=== PATIENT | female | born 1980 | race Caucasian/White ===

== ENCOUNTER 2017-07-26 22:07 | Emergency (ER) | payer OTHER ==
[~2017-07-26] VITALS: Ht 165.1 cm; Wt 81.2 kg
[~2017-07-26 22:07] MED LIST: ACET325 PO; ALBU90OI INH; AMIT50; AMIT50 PO; AZIT250 PO; BENZ100A PO; BUSP10; BUSP15 PO; CEPH500 PO; CIPR500 PO; CODACE30 PO; DIPH50 PO; DOXY100 PO; DULO30; DULO60; DULO60 PO; ERYT250 PO; ERYT333ERA PO; ESTROGEN; FIORICET; HYDACE5; HYDACE5 PO; IBUP200 PO; IBUP600 PO; IBUP800 PO; ISODICACE PO; MEDR150I; MEDR150I IM; METO100ER; METO25ER PO; METO50; METO50 PO; METO50ER; METPRE4DP PO; METR500 PO; MULVITMINE PO; NAPR500; NAPR500 PO; NITR100CA PO; OXYACE5T PO; OXYACE7.5T PO; PHENA200 PO; PRED20 PO; PROACE100 PO; PROCODE120 PO; PROM25 PO; PROP20 PO; RANI150 PO; RIFA300 PO; RXHYDACE PO; RXPHEN200 PO; RXPROACE PO; TAMS.4ER PO; TOPI100; TOPI100 PO
[2017-07-26] MEDS ORDERED: AMIT50 PO (22:44)
[2017-07-26] MEDS ORDERED: NAPR500 PO (22:44)
[2017-07-26] MEDS ORDERED: CYCL10 PO (22:44)
[2017-07-26] MEDS ORDERED: DULO60 (22:44)
[2017-07-27 00:19] LABS: BASOPHILS ABSOLUTE AUTO 0.05 K/mm3 (0.00-0.23); BASOPHILS PERCENT AUTO 1 % (0-2); EOSINOPHILS ABSOLUTE AUTO 0.12 K/mm3 (0.00-0.68); EOSINOPHILS PERCENT AUTO 1 % (0-6); Hematocrit 37.8 % (33.0-51.0); Hemoglobin 12.7 g/dL (11.5-16.0); IMMATURE GRAN ABSOLUTE AUTO 0.03 K/mm3 (0.00-0.10); IMMATURE GRAN PERCENT AUTO 0 % (0-1); LYMPHOCYTES ABSOLUTE AUTO 3.78 K/mm3 (0.84-5.20); LYMPHOCYTES PERCENT AUTO 38 % (21-46); MONOCYTES ABSOLUTE AUTO 0.56 K/mm3 (0.16-1.47); MONOCYTES PERCENT AUTO 6 % (4-13); Mean Corpuscular HGB 29.7 pg (26.0-34.0); Mean Corpuscular HGB Conc 33.6 g/dL (31.5-36.5); Mean Corpuscular Volume 88 fL (80-100); Mean Platelet Volume 9.7 fL (9.1-12.4); NEUTROPHILS PERCENT AUTO 55 % (41-73); Platelet Count 305 K/mm3 (150-400); RDW Coefficient Variation 13.1 % (11.7-14.2); RDW Standard Deviation 42.4 fL (35.1-46.3); Red Blood Cell Count 4.28 M/mm3 (3.80-5.20); White Blood Cell Count 10.04 K/mm3 (4.00-11.30)
[2017-07-27 00:34] LABS: International Normalized Ratio 1.03; Prothrombin Time Results 10.7 Sec (9.7-11.5)
[2017-07-27 00:38] LABS: Anion Gap 5 mmol/L (6-16); Blood Urea Nitrogen 12 mg/dL (8-24); CO2, Blood 27 mmol/L (21-32); Calcium, Blood 8.3 mg/dL (8.5-10.1); Chloride, Blood 107 mmol/L (98-108); Creatinine, Blood 0.86 mg/dL (0.40-1.00); Glomerular Filtration Rate >60 (60-); Glucose, Blood 88 mg/dL (70-99); Potassium, Blood 3.5 mmol/L (3.5-5.5); Sodium, Blood 139 mmol/L (136-145)
[2017-07-28] MEDS ORDERED: METTREX2.5 PO (09:58)
[2017-07-28] MEDS ORDERED: IBUP800 PO (11:06)
[2017-07-28] MEDS ORDERED: Ultram50 MG PO (11:06)
[2018-04-27] MEDS ORDERED: Zantac150 MG PO (12:22)
[2018-04-27] MEDS ORDERED: Prednisone20 MG PO (12:49)
== END 2017-07-27 01:34 | disposition home or self-care (01) ==
LOC: ER 22:07
PROVIDERS: Emergency Medicine
DX: M79.661 Pain in right lower leg (principal); Z88.0 Allergy status to penicillin; Z88.1 Allergy status to other antibiotic agents; Z88.5 Allergy status to narcotic agent; Z88.8 Allergy status to other drugs, medicaments and biological substances; Z91.040 Latex allergy status; Z79.899 Other long term (current) drug therapy; J45.909 Unspecified asthma, uncomplicated; F17.200 Nicotine dependence, unspecified, uncomplicated; Z98.51 Tubal ligation status
CPT/HCPCS: 36415; 80048; 85025; 85610; 85730; 93971; 99284

== ENCOUNTER 2017-07-28 08:49 | Emergency (ER) | payer OTHER ==
[~2017-07-28] VITALS: Ht 170.2 cm; Wt 77.1 kg
[~2017-07-28 08:49] MED LIST changes: +CYCL10 PO
[2017-07-28] MEDS ORDERED: METTREX2.5 PO (09:58)
[2017-07-28] MEDS ORDERED: Ultram50 MG PO (11:06)
[2017-07-28] MEDS ORDERED: IBUP800 PO (11:06)
[2018-04-27] MEDS ORDERED: Zantac150 MG PO (12:22)
[2018-04-27] MEDS ORDERED: Prednisone20 MG PO (12:49)
== END 2017-07-28 11:42 | disposition home or self-care (01) ==
LOC: ER 08:49
DX: S86.911A Strain of unspecified muscle(s) and tendon(s) at lower leg level, right leg, initial encounter (principal); J45.909 Unspecified asthma, uncomplicated; M54.9 Dorsalgia, unspecified; Z88.0 Allergy status to penicillin; Z88.2 Allergy status to sulfonamides; Z88.6 Allergy status to analgesic agent; Z88.8 Allergy status to other drugs, medicaments and biological substances; Z91.040 Latex allergy status; Z79.899 Other long term (current) drug therapy; F17.200 Nicotine dependence, unspecified, uncomplicated; Z98.51 Tubal ligation status; Z98.890 Other specified postprocedural states; X50.9XXA Other and unspecified overexertion or strenuous movements or postures, initial encounter
CPT/HCPCS: 93971; 99283

== ENCOUNTER → 2017-11-09 | Outpatient (CLI) | payer OTHER ==
[~2017-11-09] MED LIST changes: +METTREX2.5 PO; +Ultram50 MG PO
== END | disposition home or self-care (01) ==
LOC: LAB SHORT 10:38 → LAB EV 10:38
DX: N39.0 Urinary tract infection, site not specified (principal)
CPT/HCPCS: 87077; 87086; 87186

== ENCOUNTER → 2017-12-10 | Outpatient (CLI) | payer OTHER ==
[2017-12-10 10:15] LABS: BASOPHILS ABSOLUTE AUTO 0.05 K/mm3 (0.00-0.23); BASOPHILS PERCENT AUTO 1 % (0-2); EOSINOPHILS ABSOLUTE AUTO 0.08 K/mm3 (0.00-0.68); EOSINOPHILS PERCENT AUTO 1 % (0-6); Hematocrit 41.7 % (33.0-51.0); Hemoglobin 14.5 g/dL (11.5-16.0); IMMATURE GRAN ABSOLUTE AUTO 0.02 K/mm3 (0.00-0.10); IMMATURE GRAN PERCENT AUTO 0 % (0-1); LYMPHOCYTES PERCENT AUTO 36 % (21-46); MONOCYTES ABSOLUTE AUTO 0.46 K/mm3 (0.16-1.47); MONOCYTES PERCENT AUTO 6 % (4-13); Mean Corpuscular HGB 29.8 pg (26.0-34.0); Mean Corpuscular HGB Conc 34.8 g/dL (31.5-36.5); Mean Corpuscular Volume 86 fL (80-100); Mean Platelet Volume 9.7 fL (9.1-12.4); NEUTROPHILS ABSOLUTE AUTO 4.68 K/mm3 (1.96-9.15); NEUTROPHILS PERCENT AUTO 57 % (41-73); Platelet Count 330 K/mm3 (150-400); RDW Coefficient Variation 13.4 % (11.7-14.2); Red Blood Cell Count 4.86 M/mm3 (3.80-5.20); White Blood Cell Count 8.29 K/mm3 (4.00-11.30)
[2017-12-10 10:35] LABS: Alanine Aminotransfer (ALT/SGP 27 U/L (12-78); Albumin, Blood 4.1 g/dL (3.4-5.0); Alk Phos 146 U/L (40-126); Anion Gap 12 mmol/L (6-16); Aspartate Aminotrans (AST/SGOT 15 U/L (12-37); Bilirubin, Total 0.3 mg/dL (0.1-1.0); Blood Urea Nitrogen 8 mg/dL (8-24); CO2, Blood 23 mmol/L (21-32); Calcium, Blood 8.9 mg/dL (8.5-10.1); Chloride, Blood 104 mmol/L (98-108); Globulin, Blood 4.1 g/dL (2.2-4.0); Glomerular Filtration Rate >60 (60-); Glucose, Blood 88 mg/dL (70-99); Potassium, Blood 3.8 mmol/L (3.5-5.5); Sodium, Blood 139 mmol/L (136-145); Total Protein, Blood 8.2 g/dL (6.4-8.2)
[2017-12-10 10:56] LABS: Source, Urine Voided
[2017-12-10 11:08] LABS: Bacteria Not Seen /hpf; Red Blood Cells, Urine Not Seen /hpf (0-2); Squamous Epithelial Cells Few /hpf (Few); White Blood Cells, Urine Not Seen /hpf (0-5)
[2017-12-11 12:26] LABS: Candida species (DNA Probe) Negative (NEGATIVE); G. vaginalis (DNA Probe) Negative (NEGATIVE); T. vaginalis (DNA Probe) Negative (NEGATIVE)
== END | disposition home or self-care (01) ==
LOC: LAB SHORT 10:12 → LAB EV 10:12
PROVIDERS: Physician Assistant
DX: I63.9 Cerebral infarction, unspecified (principal); R30.0 Dysuria
CPT/HCPCS: 80053; 81015; 85025; 87480; 87510; 87660

== ENCOUNTER 2018-09-20 20:46 | Emergency (ER) | payer OTHER ==
[~2018-09-20] VITALS: Ht 165.1 cm; Wt 92.1 kg
[~2018-09-20 20:46] MED LIST changes: +Prednisone20 MG PO; +Zantac150 MG PO
== END 2018-09-20 22:45 | disposition home or self-care (01) ==
LOC: ER 20:46
DX: G43.909 Migraine, unspecified, not intractable, without status migrainosus (principal); Z88.0 Allergy status to penicillin; Z88.2 Allergy status to sulfonamides; Z88.1 Allergy status to other antibiotic agents; Z88.5 Allergy status to narcotic agent; Z91.040 Latex allergy status; Z79.899 Other long term (current) drug therapy; Z79.52 Long term (current) use of systemic steroids; J45.909 Unspecified asthma, uncomplicated; F32.9 Major depressive disorder, single episode, unspecified; F17.210 Nicotine dependence, cigarettes, uncomplicated
CPT/HCPCS: 96374; 96375; 99283-25; J0780; J1100; J1200; J1885; J2405; J7030

== ENCOUNTER 2018-10-01 17:39 | Emergency (ER) | payer OTHER ==
[~2018-10-01] VITALS: Ht 165.1 cm; Wt 94.3 kg
[2018-10-01] MEDS ORDERED: Zanaflex4 MG PO (18:19)
[2018-10-01] MEDS ORDERED: KETO10 PO (18:40)
[2018-10-01] MEDS ORDERED: Tamiflu75 MG PO (18:40)
[2018-10-01 19:10] LABS: Influenza A Negative (NEGATIVE); Influenza B Negative (NEGATIVE)
== END 2018-10-01 18:47 | disposition home or self-care (01) ==
LOC: ER 17:39
PROVIDERS: Physician Assistant
DX: R07.81 Pleurodynia (principal); J06.9 Acute upper respiratory infection, unspecified; J11.1 Influenza due to unidentified influenza virus with other respiratory manifestations; Z88.0 Allergy status to penicillin; Z88.2 Allergy status to sulfonamides; Z88.1 Allergy status to other antibiotic agents; Z88.5 Allergy status to narcotic agent; Z91.040 Latex allergy status; Z79.899 Other long term (current) drug therapy; J45.909 Unspecified asthma, uncomplicated; F17.210 Nicotine dependence, cigarettes, uncomplicated
CPT/HCPCS: 71046; 87804; 99283-25

== ENCOUNTER → 2018-11-27 | Outpatient (CLI) | payer OTHER ==
[~2018-11-27] MED LIST changes: +KETO10 PO; +Tamiflu75 MG PO; +Zanaflex4 MG PO
[2018-11-29 09:12] LABS: COTININE Negative ng/mL (Cutoff=300)
== END | disposition home or self-care (01) ==
LOC: LAB 08:59 → LAB SHORT 08:59
PROVIDERS: Podiatrist Foot & Ankle Surgery
DX: F17.200 Nicotine dependence, unspecified, uncomplicated (principal)

== ENCOUNTER 2018-12-09 10:12 | Day surgery (SDC) | payer BC, OTHER ==
[~2018-12-09] VITALS: Ht 165.1 cm; Wt 97.2 kg
[2018-12-09] MEDS ORDERED: RIZATRIPTAN10 MG (11:11)
[2018-12-09] MEDS ORDERED: Esgic Tablet1 EACH (11:12)
[2018-12-09] MEDS ORDERED: EMGALITY120 MG/1 M (11:13)
== END 2018-12-09 13:05 | disposition home or self-care (01) ==
LOC: ORSCSDS 10:12
PROVIDERS: Podiatrist Foot & Ankle Surgery
PROC: 0L8N0ZZ Division of Right Lower Leg Tendon, Open Approach (ICD-10-PCS; principal; 2018-12-09 11:30)
PROC: 0JNQ0ZZ Release Right Foot Subcutaneous Tissue and Fascia, Open Approach (ICD-10-PCS; principal; 2018-12-09 11:30)
DX: M72.2 Plantar fascial fibromatosis (principal); M24.573 Contracture, unspecified ankle; J45.909 Unspecified asthma, uncomplicated; Z87.891 Personal history of nicotine dependence; Z79.899 Other long term (current) drug therapy; E66.01 Morbid (severe) obesity due to excess calories; Z68.35 Body mass index [BMI] 35.0-35.9, adult
CPT/HCPCS: J1100; J2250; J2405; J2704; J3010; J3370; J7120

== ENCOUNTER 2019-04-24 19:15 | Emergency (ER) | payer BC, OTHER ==
[~2019-04-24] VITALS: Ht 165.1 cm; Wt 95.7 kg
[~2019-04-24 19:15] MED LIST changes: +EMGALITY120 MG/1 M; +Esgic Tablet1 EACH; +RIZATRIPTAN10 MG
[2019-04-24] MEDS ORDERED: CEPH500 PO (20:29)
[2019-04-24] MEDS ORDERED: Flonase 0.05% N16 GM (20:29)
[2019-04-24] MEDS ORDERED: PSEU120ER PO (20:29)
== END 2019-04-24 20:35 | disposition home or self-care (01) ==
LOC: ER 19:15
DX: J40 Bronchitis, not specified as acute or chronic (principal); H66.92 Otitis media, unspecified, left ear; J32.9 Chronic sinusitis, unspecified; F17.210 Nicotine dependence, cigarettes, uncomplicated; Z88.0 Allergy status to penicillin; Z88.2 Allergy status to sulfonamides; Z88.1 Allergy status to other antibiotic agents; Z88.8 Allergy status to other drugs, medicaments and biological substances; Z91.040 Latex allergy status; Z88.5 Allergy status to narcotic agent; Z79.899 Other long term (current) drug therapy
CPT/HCPCS: 71046; 99283-25

== ENCOUNTER 2019-04-28 21:33 | Emergency (ER) | payer BC, OTHER ==
[~2019-04-28] VITALS: Ht 165.1 cm; Wt 95.7 kg
[~2019-04-28 21:33] MED LIST changes: +Flonase 0.05% N16 GM; +PSEU120ER PO
[2019-04-28] MEDS ORDERED: BENZ100A PO (23:18)
[2019-04-28] MEDS ORDERED: ALBU90OI INH (23:18)
[2019-04-28] MEDS ORDERED: Zithromax250 MG PO (23:18)
== END 2019-04-28 23:31 | disposition home or self-care (01) ==
LOC: ER 21:33
DX: J18.9 Pneumonia, unspecified organism (principal); J45.909 Unspecified asthma, uncomplicated; F17.200 Nicotine dependence, unspecified, uncomplicated; Z88.0 Allergy status to penicillin; Z88.2 Allergy status to sulfonamides; Z88.1 Allergy status to other antibiotic agents; Z88.8 Allergy status to other drugs, medicaments and biological substances; Z88.5 Allergy status to narcotic agent; Z91.040 Latex allergy status; Z79.899 Other long term (current) drug therapy
CPT/HCPCS: 71045; 94640; 99283-25

== ENCOUNTER 2019-05-18 19:51 | Emergency (ER) | payer OTHER ==
[~2019-05-18] VITALS: Ht 165.1 cm; Wt 97.1 kg
[~2019-05-18 19:51] MED LIST changes: +Zithromax250 MG PO
[2019-05-18 20:23] LABS: BASOPHILS ABSOLUTE AUTO 0.03 K/mm3 (0.00-0.23); BASOPHILS PERCENT AUTO 0 % (0-2); EOSINOPHILS ABSOLUTE AUTO 0.06 K/mm3 (0.00-0.68); EOSINOPHILS PERCENT AUTO 1 % (0-6); Hematocrit 39.7 % (33.0-51.0); Hemoglobin 13.4 g/dL (11.5-16.0); IMMATURE GRAN ABSOLUTE AUTO 0.02 K/mm3 (0.00-0.10); IMMATURE GRAN PERCENT AUTO 0 % (0-1); LYMPHOCYTES ABSOLUTE AUTO 3.24 K/mm3 (0.84-5.20); LYMPHOCYTES PERCENT AUTO 30 % (21-46); MONOCYTES ABSOLUTE AUTO 0.58 K/mm3 (0.16-1.47); MONOCYTES PERCENT AUTO 5 % (4-13); Mean Corpuscular HGB 29.8 pg (26.0-34.0); Mean Corpuscular HGB Conc 33.8 g/dL (31.5-36.5); Mean Corpuscular Volume 88 fL (80-100); Mean Platelet Volume 10.1 fL (9.1-12.4); NEUTROPHILS ABSOLUTE AUTO 6.73 K/mm3 (1.96-9.15); NEUTROPHILS PERCENT AUTO 63 % (41-73); Platelet Count 330 K/mm3 (150-400); RDW Coefficient Variation 13.5 % (11.7-14.2); RDW Standard Deviation 43.9 fL (35.1-46.3); Red Blood Cell Count 4.49 M/mm3 (3.80-5.20); White Blood Cell Count 10.66 K/mm3 (4.00-11.30)
[2019-05-18] MEDS ORDERED: OMEPRAZOLE20 MG PO (20:33)
[2019-05-18 20:35] LABS: Source, Urine Clean Catch
[2019-05-18 20:39] LABS: Appearance, Urine Hazy (Clear); Bilirubin, Urine Neg (Neg); Blood, Urine 5+ (Neg); Color, Urine Yellow (P-Yellow); Glucose Qualitative, Urine Neg (Neg); Ketones, Urine Neg (Neg); Leukocyte Esterase, Urine 3+ (Neg); Nitrite, Urine Neg (Neg); Protein, Urine 3+ (Neg); Urobilinogen, Urine NORM (Normal)
[2019-05-18 20:41] LABS: Alanine Aminotransfer (ALT/SGP 24 U/L (12-78); Albumin, Blood 3.7 g/dL (3.4-5.0); Alk Phos 138 U/L (50-136); Anion Gap 7 mmol/L (6-16); Aspartate Aminotrans (AST/SGOT 19 U/L (12-37); Bilirubin, Total 0.2 mg/dL (0.1-1.0); Blood Urea Nitrogen 8 mg/dL (8-24); Bun/Creatinine Ratio 8.8 (12.0-20.0); CO2, Blood 26 mmol/L (21-32); Calcium, Blood 8.8 mg/dL (8.5-10.1); Chloride, Blood 108 mmol/L (98-108); Globulin, Blood 3.8 g/dL (2.2-4.0); Glomerular Filtration Rate >60 (60-); Glucose, Blood 89 mg/dL (70-99); Potassium, Blood 3.5 mmol/L (3.5-5.5); Sodium, Blood 141 mmol/L (136-145); Total Protein, Blood 7.5 g/dL (6.4-8.2)
[2019-05-18 20:47] LABS: Red Blood Cells, Urine 50-100 /hpf (0-2); Squamous Epithelial Cells Few /hpf (Few)
[2019-05-18 20:48] LABS: Bacteria Mod /hpf
[2019-05-18] MEDS ORDERED: Ultram50 MG PO (21:26)
[2019-05-18] MEDS ORDERED: ONDA4ODT MM (21:26)
[2019-05-18] MEDS ORDERED: CEPH500 PO (21:26)
[2019-05-18] MEDS ORDERED: Roxicodone5 MG PO (21:42)
== END 2019-05-18 23:17 | disposition home or self-care (01) ==
LOC: ER 19:51
PROVIDERS: Physician Assistant
DX: N10 Acute pyelonephritis (principal); N13.2 Hydronephrosis with renal and ureteral calculous obstruction; J45.909 Unspecified asthma, uncomplicated; F17.200 Nicotine dependence, unspecified, uncomplicated; Z88.0 Allergy status to penicillin; Z88.2 Allergy status to sulfonamides; Z88.1 Allergy status to other antibiotic agents; Z88.8 Allergy status to other drugs, medicaments and biological substances; Z88.5 Allergy status to narcotic agent; Z91.040 Latex allergy status; Z79.899 Other long term (current) drug therapy
CPT/HCPCS: 36415; 76770; 80053; 81001; 81025; 83690; 85025; 87077; 87086; 87186; 96365; 96375; 99284-25; A9270; J0696; J1885; J2405; J3010; J7030

== ENCOUNTER 2019-06-11 22:13 | Emergency (ER) | payer OTHER ==
[~2019-06-11] VITALS: Ht 165.1 cm; Wt 90.7 kg
[~2019-06-11 22:13] MED LIST changes: +OMEPRAZOLE20 MG PO; +ONDA4ODT MM; +Roxicodone5 MG PO
[2019-06-11] MEDS ORDERED: TAMS.4ER PO (22:36)
[2019-06-11] MEDS ORDERED: ONDA4ODT MM (23:28)
== END 2019-06-11 23:59 | disposition home or self-care (01) ==
LOC: ER 22:13
DX: S06.0X0A Concussion without loss of consciousness, initial encounter (principal); J45.909 Unspecified asthma, uncomplicated; F17.200 Nicotine dependence, unspecified, uncomplicated; Z88.0 Allergy status to penicillin; Z88.2 Allergy status to sulfonamides; Z88.1 Allergy status to other antibiotic agents; Z88.5 Allergy status to narcotic agent; Z88.8 Allergy status to other drugs, medicaments and biological substances; Z79.899 Other long term (current) drug therapy; W22.8XXA Striking against or struck by other objects, initial encounter
CPT/HCPCS: 36415; 70450; 96374; 99283-25; A9270-GY; J2405

== ENCOUNTER 2020-07-23 18:25 | Emergency (ER) | payer BC, OTHER ==
[~2020-07-23] VITALS: Ht 165.1 cm; Wt 88.0 kg
== END 2020-07-23 21:33 | disposition home or self-care (01) ==
LOC: ER 18:25
DX: M54.5 Low back pain (principal); G89.29 Other chronic pain; F17.210 Nicotine dependence, cigarettes, uncomplicated; Z79.899 Other long term (current) drug therapy; Z88.2 Allergy status to sulfonamides; Z88.0 Allergy status to penicillin; Z88.1 Allergy status to other antibiotic agents; Z88.5 Allergy status to narcotic agent; Z91.040 Latex allergy status
CPT/HCPCS: 96372; 99283-25; J1885

== ENCOUNTER 2020-09-27 11:03 | Emergency (ER) | payer BC, OTHER ==
[~2020-09-27] VITALS: Ht 165.1 cm; Wt 92.5 kg
[2020-09-27] MEDS ORDERED: VENLAFAXINE HC225 MG PO (11:56)
[2020-09-27] MEDS ORDERED: ONDA4ODT MM (12:44)
== END 2020-09-27 13:36 | disposition home or self-care (01) ==
LOC: ER 11:03
DX: G43.909 Migraine, unspecified, not intractable, without status migrainosus (principal); F17.210 Nicotine dependence, cigarettes, uncomplicated; Z20.822 Contact with and (suspected) exposure to COVID-19; Z88.0 Allergy status to penicillin; Z88.2 Allergy status to sulfonamides; Z88.1 Allergy status to other antibiotic agents; Z88.8 Allergy status to other drugs, medicaments and biological substances; Z91.040 Latex allergy status; Z79.899 Other long term (current) drug therapy
CPT/HCPCS: 96361; 96374; 96375; 99283-25; J0780; J1200; J2060; J7030

== ENCOUNTER 2021-07-15 11:15 | Emergency (ER) | payer BC, OTHER ==
[~2021-07-15] VITALS: Ht 165.1 cm; Wt 92.5 kg
[~2021-07-15 11:15] MED LIST changes: +VENLAFAXINE HC225 MG PO
[2021-07-15] MEDS ORDERED: Naprosyn500 MG PO (12:34)
[2021-07-15] MEDS ORDERED: OXAYDO5 M1 PO (14:46)
== END 2021-07-15 15:21 | disposition home or self-care (01) ==
LOC: ER 11:15
DX: S67.191A Crushing injury of left index finger, initial encounter (principal); R68.84 Jaw pain; Z88.0 Allergy status to penicillin; Z88.2 Allergy status to sulfonamides; F17.210 Nicotine dependence, cigarettes, uncomplicated; X58.XXXA Exposure to other specified factors, initial encounter
CPT/HCPCS: 73130; 99282-25; A9270

== ENCOUNTER 2021-08-19 22:52 | Emergency (ER) | payer BC, OTHER ==
[~2021-08-19] VITALS: Ht 154.9 cm; Wt 90.7 kg
[~2021-08-19 22:52] MED LIST changes: +Naprosyn500 MG PO; +OXAYDO5 M1 PO
[2021-08-20] MEDS ORDERED: PRED20 PO (00:12)
== END 2021-08-20 00:32 | disposition home or self-care (01) ==
LOC: ER 22:52
DX: J38.3 Other diseases of vocal cords (principal); F17.210 Nicotine dependence, cigarettes, uncomplicated; Z79.1 Long term (current) use of non-steroidal anti-inflammatories (NSAID); Z79.899 Other long term (current) drug therapy; Z88.0 Allergy status to penicillin; Z88.1 Allergy status to other antibiotic agents; Z88.2 Allergy status to sulfonamides; Z88.5 Allergy status to narcotic agent; Z91.040 Latex allergy status; Z88.8 Allergy status to other drugs, medicaments and biological substances
CPT/HCPCS: 70491; 87430; 99284-25; J1100; Q9967

== ENCOUNTER → 2021-08-29 | Outpatient (CLI) | payer BC, OTHER ==
[2021-08-29 10:42] LABS: BASOPHILS ABSOLUTE AUTO 0.04 K/mm3 (0.00-0.23); BASOPHILS PERCENT AUTO 0 % (0-2); EOSINOPHILS PERCENT AUTO 1 % (0-6); Hematocrit 40.9 % (33.0-51.0); Hemoglobin 13.6 g/dL (11.5-16.0); IMMATURE GRAN ABSOLUTE AUTO 0.07 K/mm3 (0.00-0.10); IMMATURE GRAN PERCENT AUTO 1 % (0-1); LYMPHOCYTES ABSOLUTE AUTO 2.79 K/mm3 (0.84-5.20); LYMPHOCYTES PERCENT AUTO 28 % (21-46); MONOCYTES ABSOLUTE AUTO 0.63 K/mm3 (0.16-1.47); MONOCYTES PERCENT AUTO 6 % (4-13); Mean Corpuscular HGB 29.2 pg (26.0-34.0); Mean Corpuscular HGB Conc 33.3 g/dL (31.5-36.5); Mean Corpuscular Volume 88 fL (80-100); Mean Platelet Volume 10.2 fL (9.1-12.4); NEUTROPHILS ABSOLUTE AUTO 6.29 K/mm3 (1.96-9.15); NEUTROPHILS PERCENT AUTO 63 % (41-73); Platelet Count 340 K/mm3 (150-400); RDW Coefficient Variation 14.6 % (11.7-14.2); RDW Standard Deviation 46.7 fL (35.1-46.3); Red Blood Cell Count 4.65 M/mm3 (3.80-5.20); White Blood Cell Count 9.92 K/mm3 (4.00-11.30)
[2021-08-29 12:44] LABS: Alanine Aminotransfer (ALT/SGP 22 U/L (12-78); Albumin, Blood 3.6 g/dL (3.4-5.0); Albumin/Globulin Ratio 1.1 (0.8-1.8); Alk Phos 160 U/L (50-136); Anion Gap 6 mmol/L (6-16); Aspartate Aminotrans (AST/SGOT 11 U/L (12-37); Bilirubin, Total 0.2 mg/dL (0.1-1.0); Blood Urea Nitrogen 8 mg/dL (8-24); Bun/Creatinine Ratio 9.4 (12.0-20.0); CO2, Blood 22 mmol/L (21-32); Calcium, Blood 8.7 mg/dL (8.5-10.1); Chloride, Blood 110 mmol/L (98-108); Cholesterol 219 mg/dL (50-200); Creatinine, Blood 0.85 mg/dL (0.40-1.00); Globulin, Blood 3.4 g/dL (2.2-4.0); Glomerular Filtration Rate >60 (60-); Glucose, Blood 102 mg/dL (70-99); HDL Cholesterol 44 mg/dL (>39); LDL/HDL RATIO 3.5; Low Density Lipoprotein Chol 152 mg/dL (0-110); Potassium, Blood 4.2 mmol/L (3.5-5.5); Sodium, Blood 138 mmol/L (136-145); Triglycerides 114 mg/dL (30-140); Very Low Density Lipoprot Chol 22 mg/dL (6-28)
== END | disposition home or self-care (01) ==
LOC: LAB SHORT 09:23
PROVIDERS: Student in an Organized Health Care Education/Training Program
DX: G43.909 Migraine, unspecified, not intractable, without status migrainosus (principal); E78.2 Mixed hyperlipidemia; F32.9 Major depressive disorder, single episode, unspecified; J06.0 Acute laryngopharyngitis
CPT/HCPCS: 36415; 80053; 80061; 85025; 86308

== ENCOUNTER 2022-02-16 17:36 | Emergency (ER) | payer BC, OTHER ==
[~2022-02-16] VITALS: Ht 165.1 cm; Wt 92.5 kg
[2022-02-16 18:24] LABS: BASOPHILS ABSOLUTE AUTO 0.05 K/mm3 (0.00-0.23); BASOPHILS PERCENT AUTO 0 % (0-2); EOSINOPHILS ABSOLUTE AUTO 0.16 K/mm3 (0.00-0.68); EOSINOPHILS PERCENT AUTO 1 % (0-6); Hematocrit 40.6 % (33.0-51.0); Hemoglobin 13.6 g/dL (11.5-16.0); Mean Corpuscular HGB 29.1 pg (26.0-34.0); Mean Corpuscular HGB Conc 33.5 g/dL (31.5-36.5); Mean Corpuscular Volume 87 fL (80-100); Mean Platelet Volume 9.8 fL (9.1-12.4); Platelet Count 317 K/mm3 (150-400); RDW Coefficient Variation 14.6 % (11.7-14.2); RDW Standard Deviation 46.6 fL (35.1-46.3); Red Blood Cell Count 4.67 M/mm3 (3.80-5.20); White Blood Cell Count 13.84 K/mm3 (4.00-11.30)
[2022-02-16 18:30] LABS: IMMATURE GRAN ABSOLUTE AUTO 0.07 K/mm3 (0.00-0.10); IMMATURE GRAN PERCENT AUTO 1 % (0-1); LYMPHOCYTES ABSOLUTE AUTO 5.27 K/mm3 (0.84-5.20); LYMPHOCYTES PERCENT AUTO 38 % (21-46); MONOCYTES ABSOLUTE AUTO 0.76 K/mm3 (0.16-1.47); MONOCYTES PERCENT AUTO 6 % (4-13); NEUTROPHILS ABSOLUTE AUTO 7.53 K/mm3 (1.96-9.15); NEUTROPHILS PERCENT AUTO 54 % (41-73)
[2022-02-16 18:44] LABS: Albumin, Blood 3.9 g/dL (3.4-5.0); Bilirubin, Total 0.2 mg/dL (0.1-1.0); Bun/Creatinine Ratio 6.6 (12.0-20.0); Calcium, Blood 9.5 mg/dL (8.5-10.1); Creatinine, Blood 0.9 mg/dL (0.40-1.00); Globulin, Blood 3.9 g/dL (2.2-4.0); Potassium, Blood 3.4 mmol/L (3.5-5.5); Total Protein, Blood 7.8 g/dL (6.4-8.2)
[2022-02-16] MEDS ORDERED: DOXY100 PO (21:45)
== END 2022-02-16 22:07 | disposition home or self-care (01) ==
LOC: ER 17:36
PROVIDERS: Physician Assistant
DX: G43.909 Migraine, unspecified, not intractable, without status migrainosus (principal); J45.909 Unspecified asthma, uncomplicated; F17.210 Nicotine dependence, cigarettes, uncomplicated; Z88.5 Allergy status to narcotic agent; Z88.0 Allergy status to penicillin; Z88.2 Allergy status to sulfonamides; Z88.8 Allergy status to other drugs, medicaments and biological substances; Z88.6 Allergy status to analgesic agent; Z88.1 Allergy status to other antibiotic agents; Z91.040 Latex allergy status; Z79.899 Other long term (current) drug therapy; Z86.73 Personal history of transient ischemic attack (TIA), and cerebral infarction without residual deficits
CPT/HCPCS: 36415; 70450; 80053; 85025; 93005; 93010; 99284-25; J1200; J1885; J2765; J7030

== ENCOUNTER 2022-09-30 20:50 | Emergency (ER) | payer BC, OTHER ==
[~2022-09-30] VITALS: Ht 165.1 cm; Wt 93.0 kg
[2022-09-30 21:21] LABS: BASOPHILS ABSOLUTE AUTO 0.04 K/mm3 (0.00-0.23); BASOPHILS PERCENT AUTO 0 % (0-2); EOSINOPHILS ABSOLUTE AUTO 0.09 K/mm3 (0.00-0.68); EOSINOPHILS PERCENT AUTO 1 % (0-6); Hematocrit 40.8 % (33.0-51.0); Hemoglobin 13.8 g/dL (11.5-16.0); IMMATURE GRAN ABSOLUTE AUTO 0.04 K/mm3 (0.00-0.10); IMMATURE GRAN PERCENT AUTO 0 % (0-1); LYMPHOCYTES ABSOLUTE AUTO 4.86 K/mm3 (0.84-5.20); LYMPHOCYTES PERCENT AUTO 41 % (21-46); MONOCYTES ABSOLUTE AUTO 0.62 K/mm3 (0.16-1.47); MONOCYTES PERCENT AUTO 5 % (4-13); Mean Corpuscular HGB 29.2 pg (26.0-34.0); Mean Corpuscular HGB Conc 33.8 g/dL (31.5-36.5); Mean Corpuscular Volume 86 fL (80-100); Mean Platelet Volume 10.2 fL (9.1-12.4); NEUTROPHILS ABSOLUTE AUTO 6.32 K/mm3 (1.96-9.15); NEUTROPHILS PERCENT AUTO 53 % (41-73); Platelet Count 325 K/mm3 (150-400); RDW Coefficient Variation 13.7 % (11.7-14.2); Red Blood Cell Count 4.72 M/mm3 (3.80-5.20); White Blood Cell Count 11.97 K/mm3 (4.00-11.30)
[2022-09-30 21:41] LABS: Albumin, Blood 3.6 g/dL (3.4-5.0); Albumin/Globulin Ratio 0.9 (0.8-1.8); Bilirubin, Total 0.4 mg/dL (0.1-1.0); Bun/Creatinine Ratio 13.3 (12.0-20.0); Creatinine, Blood 0.97 mg/dL (0.40-1.00); Potassium, Blood 3.8 mmol/L (3.5-5.5); Total Protein, Blood 7.6 g/dL (6.4-8.2)
[2022-09-30 22:19] LABS: Source, Urine Voided
[2022-09-30 22:21] LABS: Bilirubin, Urine Neg (Neg); Blood, Urine Neg (Neg); Glucose Qualitative, Urine Neg (Neg); Ketones, Urine Neg (Neg); Leukocyte Esterase, Urine Neg (Neg); Nitrite, Urine Neg (Neg); Protein, Urine 1+ (Neg); Urobilinogen, Urine NORM (Normal)
[2022-09-30] MEDS ORDERED: OMEP20ER PO (22:22)
[2022-09-30 22:26] LABS: Appearance, Urine Clear (Clear); Color, Urine Yellow (P-Yellow)
[2022-09-30] MEDS ORDERED: Magnesium Citr296 ML PO (22:58)
== END 2022-09-30 23:08 | disposition home or self-care (01) ==
LOC: ER 20:50
PROVIDERS: Emergency Medicine; Student in an Organized Health Care Education/Training Program
DX: R10.11 Right upper quadrant pain (principal); F17.210 Nicotine dependence, cigarettes, uncomplicated; Z88.0 Allergy status to penicillin; Z88.2 Allergy status to sulfonamides; Z88.1 Allergy status to other antibiotic agents; Z88.8 Allergy status to other drugs, medicaments and biological substances; Z91.040 Latex allergy status; Z79.899 Other long term (current) drug therapy; Z79.52 Long term (current) use of systemic steroids
CPT/HCPCS: 80053; 81025; 83690; 85025; 96374; 99284-25; A9270; J2405